=== PATIENT | female | born 1945 | race Caucasian/White ===

== ENCOUNTER 2018-09-10 13:48 | Inpatient (IN) | payer MEDICARE, OTHER ==
[2018-09-10] MEDS ORDERED: ETOMIDATE 2 MG/ML 10 ML VIAL IVP STA (14:08)
--- NOTE | 2018-09-10 15:01 | ED ---
General Adult HPI - General Chief complaint: Extremity Injury, Lower Stated complaint: rt ankle Fx Time Seen by Provider: 09/10/18 13:50 Source: family, RN notes reviewed Mode of arrival: wheelchair Limitations: physical limitation - History of Present Illness Initial comments: This is a 72-year-old female who presents to the emergency department compla ining that she tripped on a step. Patient states after that she was unable to ablate because of her right ankle was grossly deformed. Patient denies any knee pain or hip pain. Patient denies hitting her head or neck. Patient has no other complaints at this time. - Related Data Home Medications Medication Instructions Recorded Confirmed Atenolol 25 mg PO DAILY 09/10/18 09/10/18 Atorvastatin [Lipitor] 20 mg PO DAILY 09/10/18 09/10/18 Citalopram Hydrobromide [CeleXA] 40 mg PO DAILY 09/10/18 09/10/18 Estradiol [Estradiol 0.0375 MG 0.0375 mg TRANSDERM MOFR 09/10/18 09/10/18 Patch] Gabapentin [Neurontin] 100 mg PO TID 09/10/18 09/10/18 HYDROcodone/APAP 5-325MG [[place] 1 tab PO DAILY PRN 09/10/18 09/10/18 5-325] Hydrochlorothiazide 25 mg PO DAILY 09/10/18 09/10/18 Omeprazole [PriLOSEC] 20 mg PO TID 09/10/18 09/10/18 Allergies Allergy/AdvReac Type Severity Reaction Status Date / Time ampicillin Allergy Anaphylaxis Verified 09/10/18 14:13 Penicillins Allergy Anaphylaxis Verified 09/10/18 14:13 sulfamethoxazole Allergy Anaphylaxis Verified 09/10/18 14:13 [From Bactrim] trimethoprim [From Bactrim] Allergy Anaphylaxis Verified 09/10/18 14:13 Review of Systems ROS Statement: Those systems with pertinent positive or pertinent negative responses have been documented in the HPI. ROS Other: All systems not noted in ROS Statement are negative. Past Medical History Past Medical History: Hypertension History of Any Multi-Drug Resistant Organisms: None Reported Additional Past Surgical History / Comment(s): cyst removal from pelvis 04/10/2018 Past Psychological History: No Psychological Hx Reported Smoking Status: Never smoker Past Alcohol Use History: Daily Past Drug Use History: None Reported General Exam - General Exam Comments Initial Comments: GENERAL Patient is well-developed and well-nourished. Patient is in mild distress. EYES Patient's pupils are equal and round. Extraocular motion is intact SKIN Unremarkable NEURO The patient is alert and oriented 3 PYSCH Patient has normal interpersonal interactions. MUSCULOSKELETAL Ankle is grossly deformed and deviated laterally. There is no DP pulse on that foot. Limitations: physical limitation Course Vital Signs 09/10/18 09/10/18 09/10/18 14:04 14:20 14:25 Temperature 98.0 F Pulse Rate 68 63 66 Respiratory 16 16 18 Rate Blood Pressure 142/87 148/78 142/77 O2 Sat by Pulse 98 99 99 Oximetry 09/10/18 09/10/18 09/10/18 14:35 14:40 14:48 Temperature Pulse Rate 64 67 62 Respiratory 18 16 16 Rate Blood Pressure 150/77 148/83 147/84 O2 Sat by Pulse 99 99 99 Oximetry 09/10/18 15:17 Temperature Pulse Rate 76 Respiratory 16 Rate Blood Pressure 142/86 O2 Sat by Pulse 98 Oximetry Procedures - [place] Protocol (Time Out) Procedure Performed:: closed reduction of right ankle Performing Provider: Saud Layton Nurse: May Spring Respiratory Therapist: Tristan Cuellar Patient Identification (2 identifiers required): Arm Band, Name 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: Consent Site: right ankle Site Marked: Yes Site Verified With Patient/Guardian: Yes Final Confirmation: Procedure, Site, Confirmed w/Provider - Orthopedic Fracture Reduction Fracture #1 Consent Obtained: verbal consent Side: right Fracture Reduction Location: tibia, fibula Technique: traction/counter-traction Post Reduction X-rays Demonstrate: acceptable reduction Post-Reduction Neuro Exam: intact Post-Reduction Vascular Exam: intact Splint Applied: Yes Patient Tolerated Procedure: well - Procedural Sedation Procedural Sedation Start Time: 14:26 Procedural Sedation Stop Time: 14:50 Indications: fracture/dislocation reduction ASA Class: I Preparation: monitor car operator applied, pulse oximeter, supplemental O2 applied IV Etomidate Dose (mgs): 15 Complications: none Patient Tolerated Procedure: well Medical Decision Making - Medical Decision Making X-ray of the ankle shows a fracture of the lateral and medial malleolus. Also d islocated. Patient's tib-fib x-ray shows no proximal fracture. Postreduction x-ray shows fairly good alignment except for the medial malleolus. Immediately after reduction patient's DP pulses returned. I sent these pictures to miguel reeves I spoke with the physician project construction assistant manager concepción and he wanted the patient admitted and I consulted ángel for medical management. Patient's EKG shows sinus bradycardia 59 bpm [place] interval is 162 QRS is 70 QT interval 464 QTC is 459. Miguel Reeves came into the emergency department and saw the patient in the ER. - Lab Data Result diagrams: 09/10/18 14:10 09/10/18 14:10 Lab Results 09/10/18 09/10/18 09/10/18 Range/Units 14:10 14:10 14:10 WBC 7.4 (3.8-10.6) k/uL RBC 4.34 (3.80-5.40) m/uL Hgb 13.6 (11.4-16.0) gm/dL Hct 40.3 (34.0-46.0) % MCV 92.7 (80.0-100.0) fL MCH 31.2 (25.0-35.0) pg MCHC 33.7 (31.0-37.0) g/dL RDW 12.9 (11.5-15.5) % Plt Count 230 (150-450) k/uL Neutrophils % 69 % Lymphocytes % 17 % Monocytes % 8 % Eosinophils % 4 % Basophils % 1 % Neutrophils # 5.0 (1.3-7.7) k/uL Lymphocytes # 1.3 (1.0-4.8) k/uL Monocytes # 0.6 (0-1.0) k/uL Eosinophils # 0.3 (0-0.7) k/uL Basophils # 0.0 (0-0.2) k/uL PT 10.4 (9.0-12.0) sec INR 1.0 (<1.2) APTT 23.2 (22.0-30.0) sec Sodium 138 (137-145) mmol/L Potassium 4.1 (3.5-5.1) mmol/L Chloride 103 (98-107) mmol/L Carbon Dioxide 25 (22-30) mmol/L Anion Gap 10 mmol/L BUN 17 (7-17) mg/dL Creatinine 0.58 (0.52-1.04) mg/dL Est GFR (CKD-EPI)AfAm >90 (>60 ml/min/1.73 sqM) Est GFR (CKD-EPI)NonAf >90 (>60 ml/min/1.73 sqM) Glucose 122 H (74-99) mg/dL Calcium 9.0 (8.4-10.2) mg/dL Total Bilirubin 0.8 (0.2-1.3) mg/dL AST 28 (14-36) U/L ALT 27 (9-52) U/L Alkaline Phosphatase 71 (38-126) U/L Total Protein 6.9 (6.3-8.2) g/dL Albumin 4.0 (3.5-5.0) g/dL Disposition Clinical Impression: Bimalleolar fracture, Ankle dislocation Disposition: ADMITTED IP TO THIS [facility] Time of Disposition: 15:30
--- NOTE | 2018-09-10 15:02 | XR ---
EXAMINATION TYPE: XR tibia fibula RT DATE OF EXAM: 09/10/2018 COMPARISON: NONE HISTORY: Pain TECHNIQUE: 3 views FINDINGS: The knee joint is intact. There is posterior fracture dislocation of the ankle joint. IMPRESSION: Fracture dislocation of the ankle joint.
--- NOTE | 2018-09-10 15:03 | XR ---
EXAMINATION TYPE: XR ankle complete RT DATE OF EXAM: 09/10/2018 COMPARISON: NONE HISTORY: Ankle pain TECHNIQUE: 2 views FINDINGS: There is posterior dislocation of the talus. There is fracture of the medial and lateral ma lleolus and also 1.5 cm chest fracture of the posterior malleolus. The subtalar joint is anatomic. IMPRESSION: There is trimalleolar posterior fracture dislocation of the ankle.
--- NOTE | 2018-09-10 15:05 | XR ---
EXAMINATION TYPE: XR ankle limited RT DATE OF EXAM: 09/10/2018 COMPARISON: Today HISTORY: Postreduction TECHNIQUE: 2 views FINDINGS: There is anatomic reduction of the ankle joint. There is nondisplaced oblique fracture dist al fibula. There is transverse fracture of the medial malleolus. There is no significant displacement . There is a fracture of the posterior malleolus. IMPRESSION: There is anatomic reduction of the trimalleolar fracture dislocation of the ankle.
[2018-09-10] MEDS ORDERED: SODIUM CHLORIDE 0.9% 1,000 ML IV ONE (15:31)
[2018-09-10] MEDS ORDERED: HYDROmorphone 0.5 MG/0.5 ML SYRINGE IVP PRN (15:33)
[2018-09-10 15:54] LABS: Basophils % (A) 1 %; Eosinophils # (A) 0.3 k/uL (0-0.7); Eosinophils % (A) 4 %; HCT 40.3 % (34.0-46.0); HGB 13.6 gm/dL (11.4-16.0); Lymphocytes # (A) 1.3 k/uL (1.0-4.8); Lymphocytes % (A) 17 %; MCH 31.2 pg (25.0-35.0); MCHC 33.7 g/dL (31.0-37.0); MCV 92.7 fL (80.0-100.0); Mean Platelet Volume 7.4; Monocytes # (A) 0.6 k/uL (0-1.0); Monocytes % (A) 8 %; Neutrophils % (A) 69 %; Platelet Count 230 k/uL (150-450); RBC 4.34 m/uL (3.80-5.40); RDW 12.9 % (11.5-15.5); WBC 7.4 k/uL (3.8-10.6)
[2018-09-10 16:06] LABS: ALT 27 U/L (9-52); AST 28 U/L (14-36); African American GFR (CKD) >90 (>60 ml/min/1.73 sqM); Alkaline Phosphatase 71 U/L (38-126); Anion Gap 10 mmol/L; Blood Urea Nitrogen 17 mg/dL (7-17); Carbon Dioxide 25 mmol/L (22-30); Chloride 103 mmol/L (98-107); Glucose 122 mg/dL (74-99); Potassium 4.1 mmol/L (3.5-5.1); Sodium 138 mmol/L (137-145); Total Bilirubin 0.8 mg/dL (0.2-1.3); Total Protein 6.9 g/dL (6.3-8.2)
[2018-09-10 16:09] LABS: Partial Thromboplastin Time 23.2 sec (22.0-30.0); Prothrombin Time 10.4 sec (9.0-12.0)
--- NOTE | 2018-09-10 16:54 | XR ---
EXAMINATION TYPE: XR ankle complete RT DATE OF EXAM: 09/10/2018 COMPARISON: Today HISTORY: Post reduction TECHNIQUE: 3 views FINDINGS: There is 1.5 cm lateral subluxation of the talus. There is trimalleolar fracture of the ank le. There is no dislocation. Subtalar joint is intact. IMPRESSION: There is increased lateral subluxation of the talus compared to exam 2 hours ago. Trimall eolar ankle fracture.
--- NOTE | 2018-09-10 16:59 | XR ---
EXAMINATION TYPE: XR chest 2V DATE OF EXAM: 09/10/2018 COMPARISON: NONE HISTORY: Fall. Difficulty breathing TECHNIQUE: Frontal and lateral views of the chest are obtained. FINDINGS: Heart and mediastinum are normal. Lungs are clear. Diaphragm is normal. Bony thorax appear s intact. IMPRESSION: Normal chest
--- NOTE | 2018-09-10 18:00 | P.CONS ---
History of Present Illness - Reason for Consult Consult date: 09/10/18 hypertension Requesting physician: Nithin James - Chief Complaint fall ankle pain - History of Present Illness Patient is a 72-year-old female with a past medical history of hypertension, dyslipidemia, neuropathy, and GERD who presented to the hospital with complaints of right ankle pain. Patient had been walking down the stairs and missed a step. She immediately noticed gross deformity of her right ankle and was unable to bear weight. She presented to the emergency department. On arrival to the ER her vital signs within normal limits. Laboratory analysis is essentially unremarkable. Multiple x-rays showed a right trimalleolar fracture which was reduced but then had subluxation of the talus. She was admitted to Dr. James plans are for surgery. Patient seen and examined at bedside. She states she was walking down stairs and tripped and resulted in a right ankle deformity. She immediately had pain. She denies any lightheadedness, dizziness, chest pain, or shortness of breath prior to the event. She had a sore throat 2 weeks ago but that has since been resolved. She has no other complaints currently. She typically walks a mile with her and does not have any chest pain or shortness of breath. She easily walks up one flight of stairs without any chest pain, shortness of breath, or syncopal events. She has not had any recent changes in her medications. She has never had a heart attack, stroke, no history of diabetes. Review of Systems Pertinent positives and negatives as discussed in HPI, a complete review of systems was performed and all other systems are negative. Past Medical History Past Medical History: GERD/Reflux, Hyperlipidemia, Hypertension Additional Past Medical History / Comment(s): Neuropathy History of Any Multi-Drug Resistant Organisms: None Reported Past Surgical History: Cholecystectomy Additional Past Surgical History / Comment(s): cyst removal from pelvis 04/10/2018 Past Anesthesia/Blood Transfusion Reactions: No Reported Reaction Past Psychological History: No Psychological Hx Reported Smoking Status: Never smoker Past Alcohol Use History: Daily Past Drug Use History: None Reported Additional History: Lives with her , no assistive devices, has 1-2 glasses of wine daily. - Past Family History Father Additional Family Medical History / Comment(s): from bladder cancer Mother Additional Family Medical History / Comment(s): from kidney cancer, history of heart disease and multiple strokes in her 70s Medications and Allergies Home Medications Medication Instructions Recorded Confirmed Type Atenolol 25 mg PO DAILY 09/10/18 09/10/18 History Atorvastatin [Lipitor] 20 mg PO DAILY 09/10/18 09/10/18 History Citalopram Hydrobromide [CeleXA] 40 mg PO DAILY 09/10/18 09/10/18 History Estradiol [Estradiol 0.0375 MG 0.0375 mg TRANSDERM MOFR 09/10/18 09/10/18 History Patch] Gabapentin [Neurontin] 100 mg PO TID 09/10/18 09/10/18 History HYDROcodone/APAP 5-325MG [[place] 1 tab PO DAILY PRN 09/10/18 09/10/18 History 5-325] Hydrochlorothiazide 25 mg PO DAILY 09/10/18 09/10/18 History Omeprazole [PriLOSEC] 20 mg PO TID 09/10/18 09/10/18 History Allergies Allergy/AdvReac Type Severity Reaction Status Date / Time ampicillin Allergy Anaphylaxis Verified 09/10/18 14:13 Penicillins Allergy Anaphylaxis Verified 09/10/18 14:13 sulfamethoxazole Allergy Anaphylaxis Verified 09/10/18 14:13 [From Bactrim] trimethoprim [From Bactrim] Allergy Anaphylaxis Verified 09/10/18 14:13 Physical Exam Osteopathic Statement: *. No significant issues noted on an osteopathic structural exam other than those noted in the History and Physical/Consult. Vitals: Vital Signs Temp Pulse Resp BP Pulse Ox 09/10/18 15:17 76 16 142/86 98 09/10/18 14:48 62 16 147/84 99 09/10/18 14:40 67 16 148/83 99 09/10/18 14:35 64 18 150/77 99 09/10/18 14:25 66 18 142/77 99 09/10/18 14:20 63 16 148/78 99 09/10/18 14:04 98.0 F 68 16 142/87 98 Intake and Output 09/10/18 09/10/18 09/10/18 06:59 14:59 22:59 Other: Weight 88.451 kg General: non toxic, no distress, appears at stated age, normal weight Derm: no unusual rashes/lesions no unusual ecchymoses, warm, dry Head: atraumatic, normocephalic, symmetric Eyes: EOMI, no lid lag, anicteric sclera, pupils equal round reactive to light ENT: Nose and ears atraumatic, no thrush, no pharyngeal erythema Neck: No thyromegaly, no cervical lymphadenopathy, trachea midline, supple Mouth: no lip lesion, mucus membranes moist Cardiovascular: S1S2 reg, no murmur, positive posterior tibial pulse bilateral, no edema, capillary refill less than 2 seconds Lungs: CTA bilateral, no rhonchi, no rales , no accessory muscle use Abdominal: soft, nontender to palpation, no guarding, no appreciable organomegaly, normal bowel sounds Ext: Right lower ankle with splint and Nabor wrap in place, able to wiggle toes, light touch intact in toes, so strength 5 out of 5 in bilateral upper extremities, and left lower extremity, no contractures, Neuro: CN II-XI grossly intact, light touch intact all 4 extremities, finger to nose within normal limits, Psych: Alert, oriented, appropriate affect Results CBC & Chem 7: 09/10/18 14:10 09/10/18 14:10 Labs: Abnormal Lab Results - Last 24 Hours (Table) 09/10/18 Range/Units 14:10 Glucose 122 H (74-99) mg/dL Comments: Multiple x-rays of right ankle showing trimalleolar fracture EKG is reviewed by myself reveals sinus bradycardia at a rate of 59, TX 162, QRS 78, QTC 459, no significant ST-T wave changes, normal axis Chest x-ray: report reviewed Assessment and Plan Assessment: Right right ankle trimalleolar fracture with pain - pre-op risk stratification -Plan is for OR today -Pain control with Dilaudid -DVT prophylaxis per ortho Hypertension, controlled -Hold hydrochlorothiazide postoperatively -Continue with atenolol -Follow blood pressures Neuropathy -Continue Neurontin Dyslipidemia -Continue with Lipitor GERD -PPI Patient is medically optimized for surgery, no additional testing needed prior to surgery. Reed risk score of perioperative PR 0, respiratory failure 0.1% Thank you for allowing us to participate in the care of this patient. Do not hesitate to contact us with questions. Someone can be reached from the [facility] [place] [facility] [place] at all hours of the day at [phone].
--- NOTE | 2018-09-10 18:07 | P.HPOR ---
History of Present Illness H&P Date: 09/10/18 Chief Complaint: Right trimalleolar ankle fracture Patient is a 72-year-old female who presents to [facility] today after sustaining a fall after tripping on the stairs at her daughter's home. She had immediate pain and deformity of the ankle. She is unable to weight-bear. She was brought to [facility]. Imaging lab tests were done, images demonstrated a dislocated right trimalleolar ankle fracture. Reduction procedure was done by the ER staff under sedation, she tolerated it well. Post reduction x-rays did demonstrate relocation, she was initially placed in a posterior splint. I was contacted by the emergency room staff regarding the patient, I actually reported to the hospital to see the patient myself. I was able to review the images with images with my attending Dr. James. Patient denies any previous orthopedic surgeries involving the right lower extremity. She denies any other orthopedic complaints at this time. She has no significant medical history. She denies any chest pain, shortness of breath, fever or chills, nausea vomiting. Review of Systems Constitutional: Reports as per HPI Past Medical History Past Medical History: Hypertension History of Any Multi-Drug Resistant Organisms: None Reported Additional Past Surgical History / Comment(s): cyst removal from pelvis 04/10/2018 Past Psychological History: No Psychological Hx Reported Smoking Status: Never smoker Past Alcohol Use History: Daily Past Drug Use History: None Reported - Past Family History Father Family Medical History: No Reported History Medications and Allergies Home Medications Medication Instructions Recorded Confirmed Type Atenolol 25 mg PO DAILY 09/10/18 09/10/18 History Atorvastatin [Lipitor] 20 mg PO DAILY 09/10/18 09/10/18 History Citalopram Hydrobromide [CeleXA] 40 mg PO DAILY 09/10/18 09/10/18 History Estradiol [Estradiol 0.0375 MG 0.0375 mg TRANSDERM MOFR 09/10/18 09/10/18 History Patch] Gabapentin [Neurontin] 100 mg PO TID 09/10/18 09/10/18 History HYDROcodone/APAP 5-325MG [[place] 1 tab PO DAILY PRN 09/10/18 09/10/18 History 5-325] Hydrochlorothiazide 25 mg PO DAILY 09/10/18 09/10/18 History Omeprazole [PriLOSEC] 20 mg PO TID 09/10/18 09/10/18 History Allergies Allergy/AdvReac Type Severity Reaction Status Date / Time ampicillin Allergy Anaphylaxis Verified 09/10/18 14:13 Penicillins Allergy Anaphylaxis Verified 09/10/18 14:13 sulfamethoxazole Allergy Anaphylaxis Verified 09/10/18 14:13 [From Bactrim] trimethoprim [From Bactrim] Allergy Anaphylaxis Verified 09/10/18 14:13 Physical Examination Right lower extremity: Initial posterior splint was removed. The ankle was in plantarflexion. There is no obvious open lesions or significant areas of erythema and soft tissue swelling. Patient's sensation to light touch throughout the extremities intact. Her dorsal pedis pulses 2+. Patient denies any pain involving the knee, there is no effusion, she has no t enderness with palpation. Logroll maneuver the hip reproduces no pain Tenderness with palpation surrounding the anterior and lateral aspect of the ankle. Results - Labs Labs: Abnormal Lab Results - Last 24 Hours (Table) 09/10/18 Range/Units 14:10 Glucose 122 H (74-99) mg/dL H & H 09/10/18 Range/Units 14:10 Hgb 13.6 (11.4-16.0) gm/dL Hct 40.3 (34.0-46.0) % Coagulation 09/10/18 Range/Units 14:10 INR 1.0 (<1.2) Result Diagrams: 09/10/18 14:10 09/10/18 14:10 - Diagnostic results Ankle/Foot x-ray: report reviewed, image reviewed Assessment and Plan Plan: Imaging: Multiple x-rays were done of the right ankle. X-rays were taken after attempt was made at repositioning the foot into dorsiflexion. Images demonstrated more subluxation of the tibia to the medial side. Fractures of the medial malleolus, lateral malleolus and posterior malleolus are present. Assessment: 1. Right dislocated ankle with trimalleolar fracture, status post relocation right ankle, unstable right ankle 2. Status post fall from standing Plan: I was able to discuss the case, including left physical exam findings and imaging studies my tendon Dr. James. Due to the ankle being very unstable, along with skin tenting on the medial side of the ankle, we would like to proceed with surgery today, more specifically open reduction internal fixation of the right trimalleolar ankle fracture. Risks and benefits of procedure discussed with the patient, she is in good understanding and would like to proceed. Obtain consent Nothing by mouth diet Nonweightbearing right lower extremity Pain control Medical management Further recommendations to follow after surgery Time with Patient: Less than 30
[2018-09-10] MEDS ORDERED: MIDAZOLAM 2 MG/2 ML VIAL ONE (19:18)
[2018-09-10] MEDS ORDERED: fentaNYL (PF) 50 MCG/ML 2 ML AMP ONE (19:18)
[2018-09-10] MEDS ORDERED: LACTATED RINGERS 900 ML IV ONE (19:18)
[2018-09-10] MEDS: CLINDAMYCIN 600 MG in DEXTROSE 5% IN WATER 50 ML IVPB SCH ×2 (19:30)
[2018-09-10] MEDS ORDERED: HYDROcodone/APAP 5-325MG 1 EACH TAB PO PRN (20:30)
--- NOTE | 2018-09-10 20:31 | P.OP ---
Date of Procedure: 09/10/18 Preoperative Diagnosis: Displaced right ankle trimalleolar fracture Postoperative Diagnosis: Same Procedure(s) Performed: Open reduction and internal fixation right ankle trimalleolar fracture Implants: Jone 6-hole one third semitubular plate with 5 appropriate length screws and 2-35 mm 4.0 partially-threaded screws Anesthesia: spinal Surgeon: Nithin James Roller Skate Repairer #1: Stephen Reeves Estimated Blood Loss (ml): 5 Pathology: none sent Condition: stable Disposition: PACU Indications for Procedure: 72-year-old patient seen with a displaced right ankle trimalleolar fracture. Initial reductions were performed with persistent displacement fracture and some skin tenting. I recommended emergent open reduction internal fixation. I discussed the procedure, risks, complications and recovery. Patient and were agreeable. Consent was obtained. Operative Findings: See description of procedure Description of Procedure: The patient was taken to the operative suite. The patient received preoperative IV antibiotics. The patient underwent a spinal anesthetic by the department of anesthesia. A well-padded tourniquet was placed proximal right thigh. The right lower extremity was prepped and draped in the normal sterile orthopedic fashion. The extremity was elevated and tourniquet insufflated to 300. A lateral incision was made over the lateral malleolus sharply through skin. Blunt dissection taken down the fracture site. Hematoma evacuated. The fracture was displaced. The fracture was reduced and a bone clamp was utilized to secure. I chose a one third semitubular plate and appropriate molded. It was secured to lateral malleolus. Distal drill holes were made in proximal drill holes were made appropriate screws were inserted with good fixation noted of all screws. The bone clamp was removed. We had good stable fixation. I now made an incision along the area of the medial malleolus sharply through skin. I dissected down to the medial list. There was a displaced medial malleolar fracture with mild comminution. The fracture was reduced and secured with a bone clamp. I made 2 drill holes and inserted 235 millimeter partially threaded 4.0 screws. We had good compression of the fracture site with good overall stability. The bone clamp was removed. I took the ankle through range of motion. We good stability. We now brought the C-arm into the operative field and review the entire construct under AP, mortise and lateral imaging. We had good christian of the mortise. We had good position of the hardware. There was good alignment of the fractures. The posterior malleolus rack shoulder was less than 20% appeared stable. We obtain spot films document this. The C-arm was pulled back. All wounds were irrigated with saline solution. The subcutaneous soft tissues were approximated 2-0 Vicryl. Both skin incisions are approximate with skin adan. We applied sterile dressings. I applied sterile web roll. The tourniquet was released and immediate capillary refill the entire foot and all digits noted. I now applied a modified bulky Nava both ankle in neutral position. The patient was now awakened, transferred to a bed and recovery stable condition. Rony WHATLEY assisted procedure.
[2018-09-10] MEDS: traMADol 50 MG TAB PO SCH (21:30)
[2018-09-10] MEDS: PANTOPRAZOLE 40 MG TABLET PO SCH (21:35)
[2018-09-10] MEDS: GABAPENTIN 100 MG CAP PO SCH (21:35)
[2018-09-11] MEDS: HYDROmorphone 1 MG/ML 1 ML SYRINGE IVP PRN ×3 (00:27→09:55)
[2018-09-11] MEDS: HYDROcodone/APAP 5-325MG 1 EACH TAB PO PRN ×3 (02:45→14:56)
[2018-09-11] MEDS: CLINDAMYCIN 600 MG in DEXTROSE 5% IN WATER 50 ML IVPB SCH ×6 (03:31→21:38)
--- NOTE | 2018-09-11 07:22 | XR ---
EXAMINATION TYPE: XR ankle complete RT, [place] guidance operating room DATE OF EXAM: 09/10/2018 CLINICAL HISTORY: Open reduction internal fixation of the right ankle fluoroscopic documentation. TECHNIQUE: Fluoroscopy. COMPARISON: None. FINDINGS: Fluoroscopic guidance was provided during pain relief procedure performed by Dr. James . A total of 9 seconds of fluoroscopic time was utilized during the procedure and 3 spot images are acquired. Images acquired shows sequela of open reduction internal fixation of the right ankle.. IMPRESSION: As Above.
[2018-09-11] MEDS: ATORVASTATIN 20 MG TAB PO SCH (08:46)
[2018-09-11] MEDS: CITALOPRAM HYDROBROMIDE 20 MG TAB PO SCH (08:47)
[2018-09-11] MEDS: PANTOPRAZOLE 40 MG TABLET PO SCH ×2 (08:47→20:09)
[2018-09-11] MEDS: ATENOLOL 25 MG TAB PO SCH (08:47)
[2018-09-11] MEDS: GABAPENTIN 100 MG CAP PO SCH ×3 (08:47→21:43)
[2018-09-11] MEDS: traMADol 50 MG TAB PO SCH ×4 (08:47→21:43)
[2018-09-11] MEDS: HYDROCHLOROTHIAZIDE 25 MG TAB PO SCH (08:47)
--- NOTE | 2018-09-11 12:44 | P.PN ---
Subjective Progress Note Date: 09/11/18 Principal diagnosis: Status post ORIF right trimalleolar ankle fracture Patient evaluated at bedside, she's having some discomfort in the ankle. She denies any chest pain or shortness of breath. She denies any fevers or chills. Objective - Vital Signs Vital signs: Vital Signs Temp 98.3 F 09/11/18 07:40 Pulse 93 09/11/18 07:29 Resp 16 09/11/18 07:29 BP 138/78 09/11/18 07:29 Pulse Ox 94 L 09/11/18 07:29 Intake & Output 09/10/18 09/11/18 09/11/18 18:59 06:59 18:59 Intake Total 994 Output Total 5 Balance 989 Weight 88.451 kg Intake: IV 704 Intake, IV Titration 50 Amount Clindamycin 600 mg In 50 Dextrose 5% in Water 50 ml @ 50 mls/hr IVPB Q8H [facility] Rx#:[id number] Oral 240 Output: Estimated Blood Loss 5 Other: # Voids 1 - Exam Right lower extremity: Posterior splint is in good position and condition. Sensation to light touch both proximal distal to the splinter intact. Skin is warm to touch. She wiggles her toes and no difficulty. - Labs CBC & Chem 7: 09/10/18 14:10 09/10/18 14:10 Labs: Abnormal Lab Results - Last 24 Hours (Table) 09/10/18 Range/Units 14:10 Glucose 122 H (74-99) mg/dL Assessment and Plan Plan: Assessment: Postoperative day #1 status post ORIF right trimalleolar ankle fracture Plan: Pain control, try to use oral medication versus IV medication GI and DVT prophylaxis, continue current medication, plan for discharge on aspirin 325 mg daily Nonweightbearing right lower extremity, walker, wheelchair, knee scooter Medical recommendations Hopeful discharge today pending pain management Time with Patient: Less than 30
[2018-09-11] MEDS: ENOXAPARIN 40 MG/0.4 ML SYRINGE SQ SCH (14:50)
[2018-09-11] MEDS ORDERED: HYDROcodone/APAP 7.5-325MG 1 EACH TAB PO PRN ×2 (16:23)
[2018-09-11] MEDS: KETOROLAC 30 MG/ML 1 ML VIAL IM SCH ×2 (17:57→23:29)
--- NOTE | 2018-09-11 18:39 | P.PN ---
Subjective Progress Note Date: 09/11/18 (delayed charting patient seen at 1120) Principal diagnosis: fall Patient is a 72-year-old female with a past medical history of hypertension, dyslipidemia, neuropathy, and GERD who presented to the hospital with complaints of right ankle pain. Patient had been walking down the stairs and missed a step. She immediately noticed gross deformity of her right ankle and was unable to bear weight. She presented to the emergency department. On arrival to the ER her vital signs within normal limits. Laboratory analysis is essentially unremarkable. Multiple x-rays showed a right trimalleolar fracture which was reduced but then had subluxation of the talus. She underwent ORIF of the right ankle on 09/10 without any immediate postoperative complications. Patient seen and examined at bedside. She is still having significant pain in her right ankle. She feels very uncomfortable and warm. She denies any chest pain, shortness of breath, or nausea. Objective - Vital Signs Vital signs: Vital Signs Temp 98.0 F 09/11/18 14:33 Pulse 77 09/11/18 14:33 Resp 16 09/11/18 07:29 BP 106/68 09/11/18 14:33 Pulse Ox 92 L 09/11/18 14:33 Intake & Output 09/10/18 09/11/18 09/11/18 18:59 06:59 18:59 Intake Total 994 Output Total 5 Balance 989 Weight 88.451 kg Intake: IV 704 Intake, IV Titration 50 Amount Clindamycin 600 mg In 50 Dextrose 5% in Water 50 ml @ 50 mls/hr IVPB Q8H [facility] Rx#:[id number] Oral 240 Output: Estimated Blood Loss 5 Other: # Voids 1 1 - Exam General: Appearing, moderate distress secondary to pain, appears at stated age Derm: warm, diaphoretic Head: atraumatic, normocephalic, symmetric Eyes: EOMI, no lid lag, anicteric sclera Mouth: no lip lesion, mucus membranes moist Cardiovascular: S1S2 reg, no murmur, positive posterior tibial pulse bilateral, Lungs: CTA bilateral, no rhonchi, no rales , no accessory muscle use Ext: Right ankle in splint, no gross muscle atrophy, no edema, no contractures Neuro: CN II-XI grossly intact, no focal neuro deficits Psych: Alert, oriented, appropriate affect - Labs CBC & Chem 7: 09/10/18 14:10 09/10/18 14:10 Assessment and Plan Assessment: Right right ankle trimalleolar fracture with pain - requiring dilaudid - norco as well - pt/to assessment - management per orho Hypertension, controlled -resume hydrochlorothiazide -Continue with atenolol -Follow blood pressures Neuropathy -Continue Neurontin Dyslipidemia -Continue with Lipitor GERD -PPI DVT prophylaxis: lovenox Discussed with: patient, , nursing Anticipated discharge: in AM Anticipated discharge place: home A total of 35 minutes was spent on the care of this complex patient more than 50% of the time was spent in counseling and care coordination.
[2018-09-12] MEDS: CLINDAMYCIN 600 MG in DEXTROSE 5% IN WATER 50 ML IVPB SCH ×4 (04:50→12:19)
[2018-09-12] MEDS: KETOROLAC 30 MG/ML 1 ML VIAL IM SCH ×2 (06:05→12:19)
[2018-09-12 07:50] VITALS: RESP 16; TEMP 98.6
[2018-09-12] MEDS: ENOXAPARIN 40 MG/0.4 ML SYRINGE SQ SCH (09:27)
[2018-09-12] MEDS: CITALOPRAM HYDROBROMIDE 20 MG TAB PO SCH (09:27)
[2018-09-12] MEDS: ATORVASTATIN 20 MG TAB PO SCH (09:27)
[2018-09-12] MEDS: ATENOLOL 25 MG TAB PO SCH (09:27)
[2018-09-12] MEDS: traMADol 50 MG TAB PO SCH (09:27)
[2018-09-12] MEDS: HYDROCHLOROTHIAZIDE 25 MG TAB PO SCH (09:27)
[2018-09-12] MEDS: GABAPENTIN 100 MG CAP PO SCH (09:27)
[2018-09-12] MEDS: PANTOPRAZOLE 40 MG TABLET PO SCH (09:27)
--- NOTE | 2018-09-12 10:08 | P.PN ---
Subjective Progress Note Date: 09/12/18 Principal diagnosis: Status post ORIF right trimalleolar ankle fracture Patient evaluated at bedside, she's having some discomfort in the ankle. She denies any chest pain or shortness of breath. She denies any fevers or chills. Objective - Vital Signs Vital signs: Vital Signs Temp 98.6 F 09/12/18 07:19 Pulse 87 09/12/18 07:19 Resp 16 09/12/18 07:19 BP 154/80 09/12/18 07:19 Pulse Ox 96 09/12/18 07:19 Intake & Output 09/11/18 09/12/18 09/12/18 18:59 06:59 18:59 Intake Total 200 Balance 200 Intake: Intake, IV Titration 200 Amount Clindamycin 600 mg In 50 Dextrose 5% in Water 50 ml @ 50 mls/hr IVPB Q8H [facility] Rx#:[id number] Sodium Chloride 0.9% 1, 150 000 ml @ 75 mls/hr IV . [id number] ONE Rx#:[id number] Other: Voiding Method Bedside Commode # Voids 1 1 - Exam Right lower extremity: Posterior splint is in good position and condition. Sensation to light touch both proximal distal to the splinter intact. Skin is warm to touch. She wiggles her toes and no difficulty. - Labs CBC & Chem 7: 09/10/18 14:10 09/10/18 14:10 Assessment and Plan Plan: Assessment: Postoperative day #2 status post ORIF right trimalleolar ankle fracture Plan: Pain control, plan for discharge on [place] 7.5 mg/325 mg GI and DVT prophylaxis, plan for discharge on aspirin 325 mg daily Nonweightbearing right lower extremity, walker, wheelchair, knee scooter Medical recommendations Patient will be discharged home today. She is working on following up with orthopedic surgeon in [place] for her continuation of care. Advised that if this does not work out, we recommend seeing the patient in 2 weeks for evaluation. Time with Patient: Less than 30
--- NOTE | 2018-09-12 10:16 | P.DS ---
Providers Date of admission: 09/10/18 15:33 Expected date of discharge: 09/12/18 Attending physician: Nithin James Consults: 09/10/18 15:31 Consult Physician Urgent Consulting Provider: Kathleen Mazariegos Consult Reason/Comments: Medical clearance Do you want consulting provider notified?: Yes Primary care physician: Stated None Hospital Course: Date of admission: 09/10/2018 Date of discharge: 09/12/2018 Admission diagnosis: Right ankle trimalleolar fracture with dislocation, status post relocation, status post ORIF right trimalleolar ankle fracture Discharge diagnosis: Status post ORIF right trimalleolar ankle fracture Attending physician: Dr. James Surgical procedures: Closed reduction with splinting right ankle dislocation, open reduction internal fixation right trimalleolar ankle fracture Brief history: Patient is a 72-year-old female who presented to [facility] on 09/10/2018 after tripping on the stairs at her daughter's home and injuring her right ankle. She is brought to [facility], it was determined she had a trimalleolar fracture with dislocation. The emergency room staff under conscious sedation relocated the ankle and splinted, and attempt was made to better align the ankle, this was an achievable. Due to the unstable fracture, she underwent surgery on 09/10/2018. Hospital course: Details of patient's surgery can be found in operative report. Patient tolerated the procedure well and was subsequently transported to orthopedic floor. Patient's orthopeidc and medical care was provided daily. Arsenio miranda had daily laboratory tests performed for evaluation of overall blood counts. Patient had daily physical therapy to include strengthening range of motion as well as education with walker ambulation. Patient was treated with Lovenox for their postoperative DVT prophylaxis during their inpatient stay. Patient was noted to have a relatively uneventful postoperative course. Patient reported satisfactory pain control with oral pain medications by postoperative day 1. Patient showed satisfactory progress with physical therapy. Patient moved steadily through the program and had no difficulty meeting the goals by postoperative day 2. Given patient's otherwise satisfactory course and having met physical therapy goals, plan is to discharge patient home on postoperative day 2. Discharge condition/disposition: Patient will be discharged home in stable condition. Discharge medications: Instructions are given on resumption of patient's normal daily medications per primary care recommendation, in addition patient will be prescribed Abbot 7.5 mg/325 mg, aspirin 325 mg. Discharge instructions: 1. Do not remove splint, keep covered while showering, keep clean and intact 2. Nonweightbearing right lower extremity, ice and elevate often 3. Ice and elevate when necessary. Do not exceed 20 minutes per hour with ice pack. 4. Pain meds and anticoagulants per prescription. 5. Splint and stitches need to be removed at 2 weeks postop 6. Contact [facility], with any questions Procedures: Open reduction internal fixation right trimalleolar ankle fracture Patient Condition at Discharge: Good Plan - Discharge Summary Discharge Rx Participant: Yes New Discharge Prescriptions: New Aspirin 325 mg PO DAILY #30 tab HYDROcodone/APAP 7.5-325MG [Abbot 7.5] 1 - 2 each PO Q6HR PRN #56 tab PRN Reason: Pain Discontinued HYDROcodone/APAP 5-325MG [Abbot 5-325] 1 tab PO DAILY PRN PRN Reason: Pain No Action Estradiol [Estradiol 0.0375 MG Patch] 0.0375 mg TRANSDERM MOFR Gabapentin [Neurontin] 100 mg PO TID Citalopram Hydrobromide [CeleXA] 40 mg PO DAILY Atorvastatin [Lipitor] 20 mg PO DAILY Omeprazole [PriLOSEC] 20 mg PO TID Hydrochlorothiazide 25 mg PO DAILY Atenolol 25 mg PO DAILY Discharge Medication List Atenolol 25 mg PO DAILY 09/10/18 [History] Atorvastatin [Lipitor] 20 mg PO DAILY 09/10/18 [History] Citalopram Hydrobromide [CeleXA] 40 mg PO DAILY 09/10/18 [History] Estradiol [Estradiol 0.0375 MG Patch] 0.0375 mg TRANSDERM MOFR 09/10/18 [History] Gabapentin [Neurontin] 100 mg PO TID 09/10/18 [History] Hydrochlorothiazide 25 mg PO DAILY 09/10/18 [History] Omeprazole [PriLOSEC] 20 mg PO TID 09/10/18 [History] Aspirin 325 mg PO DAILY #30 tab 09/12/18 [Rx] HYDROcodone/APAP 7.5-325MG [Abbot 7.5] 1 - 2 each PO Q6HR PRN #56 tab 09/12/18 [Rx] Follow up Appointment(s)/Referral(s): Maximo Heaton,Equipment [NON-STAFF] - None,Stated [Primary Care Provider] - 1-2 days Patient Instructions/Handouts: ORIF of an Ankle Fracture (DC) Activity/Diet/Wound Care/Special Instructions: Wheelchair will be delivered to the bedside by [facility] Orthopedic discharge instructions: 1. Nonweightbearing right lower extremity, ice and elevated off 2. Keep splint clean and dry, keep covered while showering 3. Splint and stitches need to be removed at 2 weeks, contact [facility] with any questions, Discharge Disposition: HOME SELF-CARE
[2018-09-12 10:31] VITALS: BP 148/76; PULSE 83
--- NOTE | 2018-09-12 11:33 | P.PN ---
Subjective Progress Note Date: 09/12/18 Principal diagnosis: fall Patient is a 72-year-old female with a past medical history of hypertension, dyslipidemia, neuropathy, and GERD who presented to the hospital with complaints of right ankle pain. Patient had been walking down the stairs and missed a step. She immediately noticed gross deformity of her right ankle and was unable to bear weight. She presented to the emergency department. On arrival to the ER her vital signs within normal limits. Laboratory analysis is essentially unremarkable. Multiple x-rays showed a right trimalleolar fracture which was reduced but then had subluxation of the talus. She underwent ORIF of the right ankle on 09/10 without any immediate postoperative complications. Patient seen and examined at bedside. Feeling better today, pain better controlled, no nausea, no shortness of breath, no shortness of breath Objective - Vital Signs Vital signs: Vital Signs Temp 98.6 F 09/12/18 07: Pulse 83 09/12/18 10:30 Resp 16 09/12/18 07:19 BP 148/76 09/12/18 10:30 Pulse Ox 96 09/12/18 10:30 Intake & Output 09/11/18 09/12/18 09/12/18 18:59 06:59 18:59 Intake Total 200 Balance 200 Intake: Intake, IV Titration 200 Amount Clindamycin 600 mg In 50 Dextrose 5% in Water 50 ml @ 50 mls/hr IVPB Q8H [facility] Rx#:[id number] Sodium Chloride 0.9% 1, 150 000 ml @ 75 mls/hr IV . [id number] [facility] Rx#:[id number] Other: Voiding Method Bedside Commode # Voids 1 1 2 - Exam General: non toxic, no acute distress, appears at stated age Derm: warm, diaphoretic Head: atraumatic, normocephalic, symmetric Eyes: EOMI, no lid lag, anicteric sclera Mouth: no lip lesion, mucus membranes moist Cardiovascular: S1S2 reg, no murmur, positive posterior tibial pulse bilateral, Lungs: CTA bilateral, no rhonchi, no rales , no accessory muscle use Ext: Right ankle in splint, no gross muscle atrophy,1+ edema right knee, no contractures Neuro: CN II-XI grossly intact, no focal neuro deficits Psych: Alert, oriented, appropriate affect - Labs CBC & Chem 7: 09/10/18 14:10 09/10/18 14:10 Assessment and Plan Assessment: Right right ankle trimalleolar fracture with pain - requiring dilaudid - anup as well - pt/to assessment - management per orho Hypertension, controlled -Continue hydrochlorothiazide -Continue with atenolol -Follow blood pressures Neuropathy -Continue Neurontin Dyslipidemia -Continue with Lipitor GERD -PPI Medically stable for discharge DVT prophylaxis: kelly Discussed with: patient, family, nursing A total of 20 minutes was spent on the care of this complex patient more than 50% of the time was spent in counseling and care coordination.
[2018-09-12] MEDS ORDERED: HYDROcodone/APAP 7.5-325MG 1 EACH TAB PO ONE (12:15)
== END 2018-09-12 13:10 | disposition home or self-care (01) | DRG 494 ==
LOC: EC 13:48 → 4SSUR 15:33
PROVIDERS: ADMIT Orthopaedic Surgery; ATTEND Orthopaedic Surgery
PROC: 0QSG04Z Reposition Right Tibia with Internal Fixation Device, Open Approach (ICD-10-PCS; 2018-09-10)
PROC: 0QSJXZZ Reposition Right Fibula, External Approach (ICD-10-PCS; 2018-09-10)
PROC: 0QSGXZZ Reposition Right Tibia, External Approach (ICD-10-PCS; 2018-09-10)
PROC: 0QSJ04Z Reposition Right Fibula with Internal Fixation Device, Open Approach (ICD-10-PCS; principal; 2018-09-10 19:00)
DX: S82.851A Displaced trimalleolar fracture of right lower leg, initial encounter for closed fracture (principal); E78.5 Hyperlipidemia, unspecified; G62.9 Polyneuropathy, unspecified; I10 Essential (primary) hypertension; K21.9 Gastro-esophageal reflux disease without esophagitis; W10.9XXA Fall (on) (from) unspecified stairs and steps, initial encounter; W18.43XA Slipping, tripping and stumbling without falling due to stepping from one level to another, initial encounter; Z79.899 Other long term (current) drug therapy; Z80.51 Family history of malignant neoplasm of kidney; Z80.52 Family history of malignant neoplasm of bladder; Z82.3 Family history of stroke; Z82.49 Family history of ischemic heart disease and other diseases of the circulatory system; R00.1 Bradycardia, unspecified; Z88.0 Allergy status to penicillin; Z88.2 Allergy status to sulfonamides; Z88.8 Allergy status to other drugs, medicaments and biological substances
CPT/HCPCS: 27810; 71046; 80053; 85025; 85610; 85730; 93005; 99152; 99153; 99284